=== PATIENT | female | born 1960 | race Caucasian/White ===

== ENCOUNTER 2017-02-06 15:49 | Emergency (ER) | payer BC ==
[2017-02-06 16:13] VITALS: BP 163/88
[2017-02-06] MEDS ORDERED: Diphtheria,Pertussis(Acell),Tetanus Vaccine 0.5 ML SDV inactive IM ONE (16:19)
[2017-02-06] MEDS ORDERED: Lidocaine 1% 50 ML MDV SUBCUT STA (16:19)
--- NOTE | 2017-02-06 16:24 | EDM.PDOC ---
ED HPI GENERAL MEDICAL PROBLEM - General Chief Complaint: Bite:Animal, Insect Stated Complaint: Laceration Time Seen by Provider: 02/06/17 16:10 Source of Information: Reports: Patient, RN Notes Reviewed History Limitations: Reports: No Limitations - History of Present Illness INITIAL COMMENTS - FREE TEXT/NARRATIVE: 56 year old female presents to the ED with a laceration to her upper lip. The injury occurred about 1 hour ago. She was holding her new, foster cat. Another animal startled the cat, causing it to scratch her. The cat was a stray and just received all vaccinations, including rabies, on Tuesday of this past week. The patient's last tetanus is unknown, but she figures it was probably about 7 years ago. Left Upper Lip Pain Score (Numeric/FACES): 0 - Related Data Allergies Allergy/AdvReac Type Severity Reaction Status Date / Time whey Allergy Rash Verified 02/06/17 16:15 Social & Family History - Tobacco Use Smoking Status *Q: Never Smoker - Caffeine Use Caffeine Use: Reports: None - Recreational Drug Use Recreational Drug Use: No ED ROS GENERAL - Review of Systems Review Of Systems: See Below Skin: Reports: Wound ED EXAM, ANIMAL BITE - Physical Exam Exam: See Below Exam Limited By: No Limitations General Appearance: Alert, WD/WN, No Apparent Distress Head: Atraumatic, Normocephalic Skin Exam: Other (laceration to upper limit, crossing the vermilion border. Subcutaneous tissue involvement. No mucous membrane lacerations to inducate a through and through laceration. Superficial scratches to right side of face. ) ED ANIMAL BITE PROCEDURES - Laceration/Wound Repair Face Lac/wound length in cm: 1 Appearance: subcutaneous, linear, clean Anesthetic Type: local Local anesthesia - Lidocaine (Xylocaine): 1% plain Local anesthetic volume: 2cc Exploration/Debridement/Repair: wound explored, in a bloodless field, explored to base Closed with: sutures Suture size: other (5-0) # of sutures: 3 Suture type: nylon, interrupted, simple Sterile dressing applied: nurse Tetanus status addressed: Yes Complications: No Progress/Comments: [place] border was involved. [place] borders lined up well. Course - Vital Signs Last Recorded V/S: Last Vital Signs Temp 98.8 F 02/06/17 16:08 Pulse 78 02/06/17 16:08 Resp 20 02/06/17 16:08 BP 163/88 H 02/06/17 16:08 Pulse Ox 96 02/06/17 16:08 - Orders/Labs/Meds Orders: Active Orders 24 hr Category Date Time Status Vaccines to be Administered [RC] PER UNIT ROUTINE Care 02/06/17 16:20 Ordered Meds: Medications Discontinued Medications Generic Name Dose Route Start Last Admin Trade Name Annie PRN Reason Stop Dose Admin Diphtheria/Tetanus/Acell Pertussis 0.5 ml 02/06/17 16:19 02/06/17 16:32 Boostrix IM 02/06/17 16:20 0.5 ml .ONCE ONE Administration Lidocaine HCl 50 ml 02/06/17 16:19 02/06/17 16:35 Xylocaine 1% SUBCUT 02/06/17 16:20 50 ml NOW STA Administration Departure - Departure Time of Disposition: 16:47 Disposition: Home, Self-Care 01 Condition: good Clinical Impression: Tetanus toxoid inoculation Laceration of lip Qualifiers: Encounter type: initial encounter Qualified Code(s): S01.511A - Laceration without foreign body of lip, initial encounter Cat scratch of face Qualifiers: Encounter type: initial encounter Qualified Code(s): S00.81XA - Abrasion of other part of head, initial encounter - Discharge Information Instructions: Facial Laceration, [id number] Referrals: PCP,None [Primary Care Provider] - Forms: ED Department Discharge Additional Instructions: Laceration with suture repair Try to keep initial dressing in place for 24 hours After 24 hours, you can gently wash the wound with gentle soap and water Do not submerge the area in water until the sutures are out Apply antibiotic ointment and keep the wound covered for first 2-3 days then leave open to air Keep wound covered if there is a chance it can get dirty Sutures need to be removed in 5 days [facility] removes sutures for free. Their hours are 8am-5pm Tuesday through Tuesday. Return to clinic if signs or symptoms of infection arise, including increased redness, swelling, drainage, or fever Augmentin 1 tab twice a day for 7 days Probiotic daily to help prevent diarrhea/constipation side effects from antibiotic - My Orders Last 24 Hours: My Active Orders 02/06/17 16:20 Vaccines to be Administered [RC] PER UNIT ROUTINE - Assessment/Plan Last 24 Hours: My Active Orders 02/06/17 16:20 Vaccines to be Administered [RC] PER UNIT ROUTINE
== END 2017-02-06 17:05 | disposition home or self-care (01) ==
LOC: JD.ED 15:49
DX: S01.511A Laceration without foreign body of lip, initial encounter (principal); Z23 Encounter for immunization; Z91.011 Allergy to milk products; W55.03XA Scratched by cat, initial encounter
CPT/HCPCS: 12011; 90471; 90715; 99283; 99283-25

== ENCOUNTER 2019-08-18 14:37 | Emergency (ER) | payer BC, OTHER ==
--- NOTE | 2019-08-18 15:44 | EDM.PDOC ---
ED HPI GENERAL MEDICAL PROBLEM - General Chief Complaint: Head Injury Stated Complaint: HEAD INJURY Time Seen by Provider: 08/18/19 15:35 Source of Information: Reports: Patient History Limitations: Reports: No Limitations - History of Present Illness INITIAL COMMENTS - FREE TEXT/NARRATIVE: 51-year-old female presents to the ED for evaluation of closed head injury. She to slipped and fell on ice that was snow-covered today at about 1400 hrs. She landed hard on a concrete surface. He has a very large hematoma measuring 8-9 cm right superior occipital scalp. Complains of headache with some mild nausea. Denies any cervical neck pain. Denies pain in any other body parts from the fall. She states she was dazed but did not lose consciousness. She was walking outside her garage to the neighbor's house when her feet went out from underneath her and she landed directly on her head and upper back. Onset: Today Onset Date: 08/18/19 Onset Time: 14:00 Duration: Hour(s): Location: Reports: Head Quality: Reports: Ache, Throbbing Severity: Moderate Improves with: Reports: None Worsens with: Reports: Other (Touching the area hurts badly.) Context: Reports: Trauma. Denies: Activity, Exercise, Lifting, Sick Contact Associated Symptoms: Reports: No Other Symptoms (Slipped and fell on snow- covered ice outside her home today.), Headaches, Loss of Appetite, Malaise, Nausea/Vomiting. 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 Right Posterior Head Pain Score (Numeric/FACES): 7 - Related Data Allergies Allergy/AdvReac Type Severity Reaction Status Date / Time whey Allergy Rash Verified 08/18/19 18:51 Home Meds: Home Meds Pantoprazole Sodium [Protonix] 40 mg PO DAILY 08/18/19 [History] Past Medical History - Past Health History Medical/Surgical History: Denies Medical/Surgical History HEENT History: Reports: Impaired Vision Other HEENT History: wears glasses for reading Gastrointestinal History: Reports: Helicobacter Pylori Other Gastrointestinal History: Cleared of on 06/20/19 [employer] WORK[employer] History: Reports: - Infectious Disease History Infectious Disease History: Reports: Mumps, Rubella - Past Surgical History HEENT Surgical History: Reports: None GI Surgical History: Reports: Colonoscopy Other GI Surgeries/Procedures: had colonoscopy last may Female Surgical History: Reports: Hysterectomy Musculoskeletal Surgical History: Reports: Other (See Below) Other Musculoskeletal Surgeries/Procedures:: right knee plasma injection for her meniscus. broke her little toe on her right foot 3 months ago. 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 Social & Family History - Family History Family Medical History: Noncontributory - Tobacco Use Smoking Status *Q: Never Smoker - Caffeine Use Caffeine Use: Reports: None - Recreational Drug Use Recreational Drug Use: No - Living Situation & Occupation Living situation: Reports: Occupation: Employed ED ROS GENERAL - Review of Systems Review Of Systems: See Below Constitutional: Reports: Decreased Appetite. Denies: Fever, Chills, Malaise, Weakness, Fatigue, Weight Loss HEENT: Reports: Other (Some pain along the right mandible.). Denies: Dental Pain Respiratory: Reports: No Symptoms Cardiovascular: Reports: No Symptoms Endocrine: Reports: No Symptoms GI/Abdominal: Reports: No Symptoms, Other (History of GERD. Well controlled with pantoprazole.) Musculoskeletal: Reports: Joint Pain Skin: Reports: No Symptoms (Low back neck and knees at times) Neurological: Reports: Headache. Denies: Confusion, Dizziness, Paresthesia, Pre -Existing Deficit, Seizure, Syncope, Tremors, Trouble Speaking, Difficulty Walking, Weakness Psychiatric: Reports: No Symptoms Hematologic/Lymphatic: Reports: No Symptoms ED EXAM, HEAD INJURY - Physical Exam Exam: See Below General Appearance: Alert, WD/WN, Mild Distress, Other (Temperatures normal 36.3 respectively 16 oxygen sats are 97%.) Head: Scalp Swelling (She has a large scalp hematoma measuring 7 cm in diameter over the superior occipital right scalp.) Nexus Criteria: No: Posterior, Midline Cervical Tenderness (there is a superficial abrasion in this area but has not been actively bleeding.), Evidence of Intoxication, Altered Level of Consciousness, Focal Neurological Deficit, Painful Distraction Injuries Eyes: Bilateral Eye: Normal Inspection, PERRL Ears: Normal TMs Nose: Normal Inspection, Other (TMJ joints are normal.) Throat/Mouth: Normal Inspection, Normal Lips, Normal Teeth, Normal Oropharynx, Other Neck: Non-Tender (No dental or tongue injury.), Full Range of Motion, Normal Alignment, Normal Inspection Respiratory: No Respiratory Distress, Lungs Clear, Normal Breath Sounds, No Accessory Muscle Use, Chest Non-Tender, Other Cardiovascular: Normal Peripheral Pulses, Regular Rate, Rhythm, No Edema, No Gallop, No Murmur (No pain on compression of her ribs or back.), No Rub Back Exam: Normal Inspection, Full Range of Motion. No: CVA Tenderness (L), CVA Tenderness (R), Vertebral Tenderness Extremities: Normal Inspection, Normal Range of Motion, Non-Tender, No Pedal Edema, Normal Capillary Refill, Other (No evidence of injuries to the wrists elbows . Does have some mild pain in the deltoid muscle of her right shoulder but has full unopposed range of motion.) Neurologic: No Motor/Sensory Deficits, Alert, Normal Mood/Affect, Oriented x 3 DTR: 0: Achilles (R) Skin: Normal Color, Warm/Dry - [place] Coma Score Best Eye Response ([place]): (4) Open Spontaneously Best Verbal Response ([place]): (5) Oriented Best Motor Response ([place]): (6) Obeys Commands [place] Total: 15 Course - Vital Signs Last Recorded V/S: Last Vital Signs Temp 36.3 C 08/18/19 14:48 Pulse Resp 16 08/18/19 14:48 BP Pulse Ox 97 08/18/19 14:48 - Orders/Labs/Meds Orders: Active Orders 24 hr Category Date Time Status Head wo Cont [CT] Stat Exams 08/18/19 15:43 Taken Meds: Medications Discontinued Medications Generic Name Dose Route Start Last Admin Trade Name Annie PRN Reason Stop Dose Admin Ondansetron HCl 4 mg 08/18/19 17:56 08/18/19 18:05 Zofran Odt PO 08/18/19 17:57 4 mg ONETIME ONE Administration - Radiology Interpretation Free Text/Narrative:: 59-year-old female presents to the ED for evaluation of closed head injury. Patient slipped this afternoon on snow-covered ice at approximately 1410 hrs. She landed hard on her head and has a large 7-8 cm hematoma right mid superior occiput. She appears to contused her right shoulder mildly as well but no other injuries are identified on exam. She is alert and oriented mildly nauseated with a headache. No cervical neck pain and full unopposed range of motion. Plan CT head to be done. - Re-Assessments/Exams Free Text/Narrative Re-Assessment/Exam: 08/18/19 17:40 : CT head reveals no intracranial hemorrhage or mass effect. Unremarkable white matter. No ventriculomegaly. Sinuses appear to be clear. There is a moderate subgaleal hematoma in the posterior right vertex of the scalp which we can appreciate clinically. No skull fractures are identified. As she does not appear to have any significant concussion symptoms but she was forewarned of this. She could develop problems with her balance and vision. She is mildly nauseated this time and I will give her Zofran 4 mg sublingually. She will use Motrin at home for headache relief. At present she doesn't have any cervical neck pain. Discharged home in the care of her . Departure - Departure Time of Disposition: 17:55 Disposition: Home, Self-Care 01 Condition: Fair Clinical Impression: Strain of neck muscle, Sprain of cervical neck, Hematoma Traumatic hematoma of scalp Qualifiers: Encounter type: initial encounter Qualified Code(s): S00.03XA - Contusion of scalp, initial encounter Closed head injury with concussion Qualifiers: Encounter type: initial encounter Loss of consciousness presence/duration: without LOC Qualified Code(s): S06.0X0A - Concussion without loss of consciousness, initial encounter - Discharge Information *PRESCRIPTION DRUG MONITORING PROGRAM REVIEWED*: Not Applicable *COPY OF PRESCRIPTION DRUG MONITORING REPORT IN PATIENT RAJNI: Not Applicable Instructions: Head Injury, Adult, Post-Concussion Syndrome, [id number] Referrals: Fitz Peters MD [Primary Care Provider] - Forms: ED Department Discharge Additional Instructions: Evaluation in the emergency him today in regards to slip and fall on ice with direct blow to the back of your head. Have a large palpable scalp hematoma to the right occipital aspect of your scalp. CT of the brain and head reveals no intracranial bleeding or mass effect and no skull fracture. Does reveal a large 6 cm hematoma right except will scalp. This area will remain very tender to touch for probably 6-8 weeks. Hematoma will start to go down usually over the next 24 hours but will not go back to normal until at least 2-3 days. It is possible you suffered a mild concussion which means a bruised brain. This may affect her balance eyesight and of course cause a headache for the next couple of days. May also cause mild transient nausea. Until rest over the next couple of days. It is okay to take Aleve or better yet Excedrin Migraine for headache relief for the next couple of days. Expect increased stiffness and soreness in your neck over the next 24-[address] ice pack to the back of your head for one half hour out of every 4 hours tonight and tomorrow to reduce swelling and pain. - My Orders Last 24 Hours: My Active Orders 08/18/19 15:43 Head wo Cont [CT] Stat - Assessment/Plan Last 24 Hours: My Active Orders 08/18/19 15:43 Head wo Cont [CT] Stat
[2019-08-18] MEDS ORDERED: Ondansetron 4 MG Tab.DIS PO ONE (17:56)
--- NOTE | 2019-08-20 10:17 | CT ---
Head CT Technique: Multiple axial sections through the brain were obtained. Intravenous contrast was not utilized. Comparison: Prior head CT study of 04/19/19. Findings: Subcutaneous hematoma is seen within the scalp posteriorly on the right side. Ventricles along with basal cisterns and sulci over the convexities appear within normal limits. No abnormal parenchymal densities are seen. No evidence of intracranial hemorrhage. No midline shift or mass effect is seen. Bone window settings were reviewed. Mastoid sinuses that are seen appear clear. Visualized paranasal sinuses show nothing acute. No acute calvarial abnormality is appreciated. Impression: 1. Soft tissue hematoma within the posterior right scalp. 2. No acute calvarial abnormality is appreciated. Diagnostic code #2 This report was dictated in [place] Standard Time I agree with preliminary report issued by Jose R ([facility] report finalized on 08/18/19, 6:07 PM Central Time)
== END 2019-08-18 18:08 | disposition home or self-care (01) ==
LOC: JD.ED 14:37
DX: S06.0X0A Concussion without loss of consciousness, initial encounter (principal); S16.1XXA Strain of muscle, fascia and tendon at neck level, initial encounter; S13.4XXA Sprain of ligaments of cervical spine, initial encounter; S00.03XA Contusion of scalp, initial encounter; Z91.09 Other allergy status, other than to drugs and biological substances; W00.0XXA Fall on same level due to ice and snow, initial encounter
CPT/HCPCS: 70450; 99284; A9270; 99283